=== PATIENT | male | born 1960 | race Caucasian/White ===

== ENCOUNTER 2025-03-01 15:07 | Emergency (ER) | payer SELFPAY ==
[~2025-03-01] VITALS: Ht 167.6 cm; Wt 77.0 kg
[2025-03-01 15:12] VITALS: BP 137/90; PULSE 110; RESP 16; TEMP 36.7; O2SAT 100
[2025-03-01 16:26] LABS: BASOPHILS % 1.0 % (0.0-2.0); EOSINOPHILS % 0.8 % (0.0-5.0); HEMATOCRIT. 42.5 % (42.0-52.0); HEMOGLOBIN. 14.1 g/dL (14.0-18.0); LYMPHOCYTES % 28.7 % (20.0-50.0); MEAN PLATELET VOLUME 8.3 fl (7.4-10.4); MONOCYTES % 5.4 % (2.0-8.0); NEUTROPHILS % 64.1 % (40.0-76.0); PLATELET 142 x1000/uL (130-400); RED BLOOD CELL COUNT 4.42 mill/uL (4.7-6.1); RED CELL DISTRIBUTION WIDTH 14.0 % (11.6-14.6)
[2025-03-01 16:37] LABS: CREATININE 0.8 mg/dL (0.6-1.3); UREA NITROGEN BLOOD 12 mg/dL (9-23)
[2025-03-01 16:39] LABS: TROPONIN I HIGH SENSITIVITY 6 ng/L (3.0-53)
[2025-03-01] MEDS ORDERED: FOLIC ACID 1 MG, THIAMINE HCL 100 MG, MVI, ADULT NO.1 10 ML in DEXTROSE 5% WATER 1,000 ML IV ONE ×2 (17:00→20:00)
== END 2025-03-01 19:25 | disposition left against medical advice (07) ==
LOC: ER 15:07 → EDBEDREQ 17:38 → EDBEDREQTM 17:38 → ENRESERV 19:00 → ER 19:25 → CMPBEDREQ 03-02 08:01
DX: G93.41 Metabolic encephalopathy (principal); F10.229 Alcohol dependence with intoxication, unspecified; Y90.9 Presence of alcohol in blood, level not specified
CPT/HCPCS: 36415; 80048; 80320; 84484; 85025; 99283; J3411; J3490; J7070; G0480